=== PATIENT | female | born 1940 | race Two or more races ===

== ENCOUNTER 2016-08-24 14:20 | Outpatient (CLI) | payer MEDICARE | END 2016-08-24 23:59 | disposition home or self-care (01) | LOC: WOU 14:20 | PROVIDERS: ATTEND Podiatrist Foot & Ankle Surgery | DX: L60.0 Ingrowing nail (principal); S91.101A Unspecified open wound of right great toe without damage to nail, initial encounter; X58.XXXA Exposure to other specified factors, initial encounter; Y92.89 Other specified places as the place of occurrence of the external cause; I12.0 Hypertensive chronic kidney disease with stage 5 chronic kidney disease or end stage renal disease; N18.6 End stage renal disease; Z99.2 Dependence on renal dialysis; E78.5 Hyperlipidemia, unspecified; Z79.899 Other long term (current) drug therapy; L03.031 Cellulitis of right toe | CPT/HCPCS: 11730; A6402 ==

== ENCOUNTER 2016-09-10 10:27 | Outpatient (CLI) | payer MEDICARE | END 2016-09-10 23:59 | disposition home or self-care (01) | LOC: WOU 10:27 | PROVIDERS: ATTEND Podiatrist Foot & Ankle Surgery | DX: L60.0 Ingrowing nail (principal); L03.031 Cellulitis of right toe; I12.0 Hypertensive chronic kidney disease with stage 5 chronic kidney disease or end stage renal disease; N18.6 End stage renal disease; Z99.2 Dependence on renal dialysis | CPT/HCPCS: 11730; A6402 ==

== ENCOUNTER 2016-09-17 10:22 | Outpatient (CLI) | payer MEDICARE | END 2016-09-17 23:59 | disposition home or self-care (01) | LOC: WOU 10:22 | PROVIDERS: ATTEND Podiatrist Foot & Ankle Surgery | DX: L60.0 Ingrowing nail (principal); I12.0 Hypertensive chronic kidney disease with stage 5 chronic kidney disease or end stage renal disease; N18.6 End stage renal disease; Z99.2 Dependence on renal dialysis | CPT/HCPCS: G0463 ==

== ENCOUNTER 2016-12-02 10:20 | Outpatient (CLI) | payer MEDICARE | END 2016-12-02 23:59 | disposition home or self-care (01) | LOC: RAD 10:20 | PROVIDERS: ATTEND Internal Medicine | DX: Z01.818 Encounter for other preprocedural examination (principal); I70.0 Atherosclerosis of aorta; I51.7 Cardiomegaly | CPT/HCPCS: 71020-TC ==

== ENCOUNTER 2018-05-23 16:00 | Outpatient (CLI) | payer MEDICARE | END 2018-05-23 23:59 | disposition home or self-care (01) | LOC: RAD 16:00 | PROVIDERS: ATTEND Internal Medicine Nephrology | DX: R05 Cough (principal); I70.0 Atherosclerosis of aorta | CPT/HCPCS: 71046 ==

== ENCOUNTER 2019-02-17 15:33 | Outpatient (CLI) | payer MEDICARE | END 2019-02-17 23:59 | disposition home or self-care (01) | LOC: RAD 15:33 | PROVIDERS: ATTEND Internal Medicine Nephrology | DX: J43.9 Emphysema, unspecified (principal); I51.7 Cardiomegaly; I70.0 Atherosclerosis of aorta | CPT/HCPCS: 71046 ==

== ENCOUNTER 2019-08-25 13:40 | Outpatient (CLI) | payer MEDICARE | END 2019-08-25 23:59 | disposition home or self-care (01) | LOC: LAB 13:40 | PROVIDERS: ATTEND Internal Medicine Nephrology | DX: D64.9 Anemia, unspecified (principal) | CPT/HCPCS: 36415; 84207; 85652-TC; 86140-TC ==